=== PATIENT | female | born 1955 | race Two or more races ===

== ENCOUNTER 2020-01-09 15:07 | Inpatient (IN) | payer MEDICAID, OTHER ==
[~2020-01-09] VITALS: Ht 162.6 cm; Wt 49.9 kg
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
[2020-01-09] MEDS ORDERED: Morphine Sulfate 4mg/ml Inj (IV USE ONLY) IVP ONE (15:15)
[2020-01-09] MEDS ORDERED: Ketorolac 30mg Inj IV ONE (15:15)
[2020-01-09 15:33] VITALS: BP 144/82
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
--- NOTE | 2020-01-09 16:31 | Diagnostic Imaging Report ---
EXAM: CT Thoracic Spine Without Intravenous Contrast CLINICAL HISTORY: TRAUMA TECHNIQUE: Axial computed tomography images of the thoracic spine without intravenous contrast. CTDI is 8.8 mGy and DLP is 276.6 mGy-cm. One or more of the following dose reduction techniques were used: automated exposure control, adjustment of the mA and/or kV according to patient size, use of iterative reconstruction technique. COMPARISON: No relevant prior studies available. FINDINGS: Vertebrae: No acute fracture or malalignment of the thoracic vertebral bodies. Anterior superior endplate acute fracture of L1 vertebral body. Discs/spinal canal/neural foramina: No acute findings. No spinal canal stenosis. Soft tissues: Unremarkable. Lungs: Mild airspace disease superior segment of the left lower lobe. Liver: 9 mm low-density lesion in the right lobe of the liver. IMPRESSION: 1. Mild airspace disease superior segment of the left lower lobe. May be mild atelectasis/contusion. 2. No acute fracture or malalignment of the thoracic vertebral bodies. 3. Anterior superior endplate acute fracture of L1 vertebral body.
[2020-01-09 17:16] LABS: HEMATOCRIT 37.4 % (37.0-47.0); HEMOGLOBIN 12.5 G/DL (12.0-16.0); MEAN CORPUSCULAR VOLUME 99 FL (80-99); PLATELET COUNT 145 K/UL (150-450); RED BLOOD COUNT 3.78 M/UL (4.20-5.40); RED CELL DISTRIBUTION WIDTH 11.4 % (11.6-14.8); WHITE BLOOD COUNT 7.2 K/UL (4.8-10.8)
[2020-01-09 17:17] LABS: LYMPHOCYTES % (AUTO) 9.5 % (20.0-45.0); MONOCYTES % (AUTO) 4.9 % (1.0-10.0); NEUTROPHILS % (AUTO) 85.2 % (45.0-75.0)
[2020-01-09 17:18] LABS: BASOPHILS % (AUTO) 0.3 % (0.0-2.0); EOSINOPHILS % (AUTO) 0.1 % (0.0-3.0)
[2020-01-09 17:24] LABS: ANION GAP 10 mmol/L (5-15); BLOOD UREA NITROGEN 12 mg/dL (7-18); CALCIUM 8.2 MG/DL (8.5-10.1); CARBON DIOXIDE 25 MMOL/L (21-32); CHLORIDE 105 MMOL/L (98-107); CREATININE 0.5 MG/DL (0.55-1.30); POTASSIUM 4.5 MMOL/L (3.5-5.1); SODIUM 140 MMOL/L (136-145)
[2020-01-09 17:29] LABS: ALANINE AMINOTRANSFERASE 26 U/L (12-78); ALBUMIN/GLOBULIN RATIO 1.3 (1.0-2.7); ALKALINE PHOSPHATASE 37 U/L (46-116); ASPARTATE AMINO TRANSFERASE 46 U/L (15-37); BILIRUBIN,TOTAL 0.4 MG/DL (0.2-1.0)
[2020-01-09 18:47] LABS: APPEARANCE,URINE CLEAR; BILIRUBIN, URINE NEGATIVE (NEGATIVE); COLOR,URINE PALE YELLOW; GLUCOSE, URINE (UA) NEGATIVE (NEGATIVE); KETONES,URINE 3+ (NEGATIVE); LEUKOCYTE ESTERASE ,URINE 3+ (NEGATIVE); NITRITE,URINE NEGATIVE (NEGATIVE); PH,URINE 5 (4.5-8.0); PROTEIN,URINE NEGATIVE (NEGATIVE); UROBILINOGEN,URINE NORMAL MG/DL (0.0-1.0)
[2020-01-09 19:05] VITALS: BP 139/85
[2020-01-09 22:45] VITALS: BP 133/75
[2020-01-10] MEDS ORDERED: Morphine Sulfate 2mg/ml Inj(IV/IM USE ONLY) IVP PRN (01:45)
[2020-01-10] MEDS: Morphine Sulfate 2mg/ml Inj(IV/IM USE ONLY) IVP PRN ×3 (02:10→21:42)
[2020-01-10] MEDS: NS w/KCl 20mEq 1000ml 1,000 ML IV SCH ×3 (02:42→21:42)
[2020-01-10 05:32] VITALS: BP 124/75
[2020-01-10 08:00] VITALS: BP 122/67
[2020-01-10] MEDS: Heparin 5000 units/ml inj SUBQ SCH ×2 (09:00→21:00)
[2020-01-10] MEDS: Calcium Carbonate 500mg w/Vit D 200iu tab ORAL SCH ×3 (09:00→17:15)
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
[2020-01-10 12:00] VITALS: BP 111/58
--- NOTE | 2020-01-10 13:47 | Diagnostic Imaging Report ---
Indication: Low back pain, status post fall off of a ladder Technique: Sagittal T1 and T2 fast spin echo, sagittal STIR, axial T1 and T2 fast spin-echo images of the lumbar spine Comparison: Reference made to lumbar spine CT 01/09/2020 Findings: There is a compression fracture of the L1 vertebral body. This demonstrates slight, 10-20%, loss of height anteriorly. There is trace posterior retropulsion which does not significantly compromise the spinal canal. There is marrow edema, manifested by increased STIR and decreased T1 signal, predominantly within the upper half of the vertebral body subjacent to the superior endplate. There is slight extension of marrow edema into the right pedicle. The remaining vertebral body heights are preserved. The bony alignment is normal. The conus medullaris terminates at the T12-L1 level. The remaining vertebral marrow signal is normal. At L4-5 there is minimal circumferential annular bulge, which does not result in any significant compromise of the spinal canal or the neural foramina. At L5-S1, there is mild degenerative narrowing of the disc. There is minimal circumferential annular bulge and posterior disc protrusion, the latter demonstrating one or more small high intensity zones. This does not result in any significant spinal canal compromise. There may be very slight compromise of the right neural foramen at this level. There is a nerve root cyst involving the left S2 nerve root and a larger one involving the left S3 nerve root. The bladder is markedly distended. The right kidney demonstrates a large lower pole cyst. Impression: Positive for acute compression fracture of the L1 vertebral body, also described on recent MR spine CT. There is mild loss of height and minimal posterior retropulsion, considerable marrow edema. Mild degenerative changes, as detailed on a level by level basis above Distended urinary bladder Multiple sacral nerve root sleeve cysts.
[2020-01-10 16:00] VITALS: BP 108/61
[2020-01-10 20:00] VITALS: BP 129/65
[2020-01-11] VITALS: BP 124/64
[2020-01-11 04:00] VITALS: BP 126/68
[2020-01-11] MEDS: NS w/KCl 20mEq 1000ml 1,000 ML IV SCH (07:16)
[2020-01-11 08:00] VITALS: BP 124/67
[2020-01-11] MEDS: Heparin 5000 units/ml inj SUBQ SCH ×2 (08:10→20:46)
[2020-01-11] MEDS: Calcium Carbonate 500mg w/Vit D 200iu tab ORAL SCH ×3 (08:10→17:06)
--- NOTE | 2020-01-11 08:24 | General Progress Note ---
Assessment/Plan Status: stable Assessment/Plan: back brace pain rx pt mri noted Subjective ROS Limited/Unobtainable: No Constitutional: Reports: malaise, weakness HEENT: Reports: no symptoms Cardiovascular: Reports: no symptoms Respiratory: Reports: no symptoms Gastrointestinal/Abdominal: Reports: no symptoms Genitourinary: Reports: no symptoms Neurologic/Psychiatric: Reports: no symptoms Endocrine: Reports: no symptoms Hematologic/Lymphatic: Reports: no symptoms Allergies: Coded Allergies: No Known Allergies (Unverified , 01/09/20) All Systems: reviewed and negative except above Subjective still with severe back pain. no focal weakness or numbness. no incontinence Objective Last 24 Hour Vital Signs Date Time Temp Pulse Resp B/P (MAP) Pulse Ox O2 Delivery O2 Flow Rate FiO2 01/11/20 08:00 98.3 63 20 124/67 (86) 93 01/11/20 04:00 98.5 66 18 126/68 (87) 95 01/11/20 00:00 98.2 62 16 124/64 (84) 94 01/10/20 20:00 98.8 68 16 129/65 (86) 95 01/10/20 16:00 98.7 64 20 108/61 (77) 94 01/10/20 12:00 97.9 68 18 111/58 (75) 94 Intake and Output 01/10/20 01/11/20 19:00 07:00 Intake Total 580 ml 1460 ml Output Total 200 ml Balance 380 ml 1460 ml Intake Oral 480 ml 360 ml IV Total 100 ml 1100 ml Output Urine Total 200 ml # Voids 4 Height (Feet): 5 Height (Inches): 4.00 Weight (Pounds): 110 General Appearance: WD/WN, alert Cardiovascular: normal rate Respiratory/Chest: lungs clear Abdomen: normal bowel sounds, non tender, soft, no organomegaly Edema: no edema noted Arm (L), no edema noted Arm (R), no edema noted Leg (L), no edema noted Leg (R), no edema noted Pedal (L), no edema noted Pedal (R), no edema noted Generalized Heber Warner MD Jan 11, 2020 08:24
[2020-01-11] MEDS: MS Contin 15mg tab ORAL SCH ×2 (09:14→20:46)
[2020-01-11] MEDS: Meloxicam 15 MG TAB ORAL SCH (09:14)
[2020-01-11 12:00] VITALS: BP 127/64
[2020-01-11 16:00] VITALS: BP 121/68
[2020-01-11 20:00] VITALS: BP 125/73
[2020-01-12] VITALS (7 sets, daily range): BP systolic 102–142; BP diastolic 62–95
[2020-01-12] MEDS: Meloxicam 15 MG TAB ORAL SCH (08:20)
[2020-01-12] MEDS: MS Contin 15mg tab ORAL SCH ×2 (08:21→20:39)
[2020-01-12] MEDS: Heparin 5000 units/ml inj SUBQ SCH ×2 (08:27→20:39)
[2020-01-12] MEDS: Calcium Carbonate 500mg w/Vit D 200iu tab ORAL SCH ×3 (09:00→18:00)
--- NOTE | 2020-01-12 16:31 | General Progress Note ---
Assessment/Plan Status: stable Assessment/Plan: back brace pain rx adjusted pt stable for transfer to [facility] Subjective ROS Limited/Unobtainable: No Constitutional: Reports: no symptoms HEENT: Reports: no symptoms Cardiovascular: Reports: no symptoms Respiratory: Reports: no symptoms Gastrointestinal/Abdominal: Reports: no symptoms Genitourinary: Reports: no symptoms Neurologic/Psychiatric: Reports: no symptoms Endocrine: Reports: no symptoms Hematologic/Lymphatic: Reports: no symptoms Allergies: Coded Allergies: No Known Allergies (Unverified , 01/09/20) All Systems: reviewed and negative except above Subjective Continues to have severe back pain. Pain is difficult to control. Complains of dizziness when getting pain medications. Has pain over the upper back and shoulders. Objective Last 24 Hour Vital Signs Date Time Temp Pulse Resp B/P (MAP) Pulse Ox O2 Delivery O2 Flow Rate FiO2 01/12/20 16:18 98.5 61 19 131/72 (91) 97 01/12/20 16:03 99.9 61 19 131/72 (91) 97 01/12/20 11:58 97.1 63 18 118/70 (86) 97 01/12/20 09:00 Room Air 01/12/20 08:00 98.0 65 19 102/62 (75) 97 01/12/20 04:00 98.6 65 17 126/68 (87) 96 01/12/20 00:00 98.4 79 20 142/95 (111) 96 01/11/20 21:00 Room Air 01/11/20 20:00 98.7 60 16 125/73 (90) 96 Intake and Output 01/11/20 01/12/20 19:00 07:00 Intake Total 100 ml 480 ml Balance 100 ml 480 ml Intake Oral 480 ml IV Total 100 ml # Voids 4 # Bowel Movements 1 Height (Feet): 5 Height (Inches): 4.00 Weight (Pounds): 110 Objective General Appearance: WD/WN, alert Cardiovascular: normal rate Respiratory/Chest: lungs clear Abdomen: normal bowel sounds, non tender, soft, no organomegaly Edema: no edema noted Arm (L), no edema noted Arm (R), no edema noted Leg (L), no edema noted Leg (R), no edema noted Pedal (L), no edema noted Pedal (R), no edema noted Generalized Heber Warner MD Jan 12, 2020 16:31
[2020-01-12] MEDS ORDERED: HYDROcodone/Acetamin 10/325 tab ORAL PRN (16:45)
[2020-01-13] VITALS: BP 136/73
[2020-01-13 04:00] VITALS: BP 130/66
[2020-01-13] MEDS ORDERED: NORCO 10-325 T1 EACH ORAL (07:56)
[2020-01-13] MEDS ORDERED: MOBIC15 MG ORAL (07:56)
[2020-01-13 08:00] VITALS: BP 132/69
[2020-01-13] MEDS: Meloxicam 15 MG TAB ORAL SCH (09:00)
[2020-01-13] MEDS: Heparin 5000 units/ml inj SUBQ SCH (09:00)
[2020-01-13] MEDS: Calcium Carbonate 500mg w/Vit D 200iu tab ORAL SCH (09:00)
[2020-01-13] MEDS: MS Contin 15mg tab ORAL SCH (09:00)
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
== END 2020-01-13 10:40 | disposition home or self-care (01) | DRG 347 ==
LOC: EDBD 15:07 → EMR 15:37 → 3E 22:38 → EDBEDREQ 23:34 → 2E 01-10 13:18 → 3E 01-10 13:22 → 2E 01-10 13:42 → 3E 01-10 13:44
DX: S32.010A Wedge compression fracture of first lumbar vertebra, initial encounter for closed fracture (principal); W11.XXXA Fall on and from ladder, initial encounter; Z85.3 Personal history of malignant neoplasm of breast; Z90.13 Acquired absence of bilateral breasts and nipples
CPT/HCPCS: 36415; 72128; 72131; 72148; 80053; 81003; 85025; 85610; 96361; 96374; 96375; 99285; J2405; J7030; U0002